=== PATIENT | female | born 1980 | race Caucasian/White ===

== ENCOUNTER 2020-06-20 16:20 | Observation (INO) | payer OTHER, SELFPAY ==
--- NOTE | ~2020-06-20 | XR_ITS ---
EXAMINATION: XR chest 1V portable DATE: 06/21/2020 07:56 INDICATION: COVID positive presenting with cough TECHNIQUE: frontal view of the chest was obtained. COMPARISON: None FINDINGS: The lungs are clear with no focal airspace opacities, pulmonary edema, pleural effusion or pneumothor ax. The cardiomediastinal silhouette is normal. Visualized bones and soft tissues are unremarkable. IMPRESSION: 1. Normal chest radiograph. Reviewed, dictated and finalized at location A. RUMENT TECHNICIAN APPRENTICE IMPRESSION: 1. Normal chest radiograph.
--- NOTE | ~2020-06-20 | US_ITS ---
EXAMINATION: US OB BPP wo non-stress DATE: 06/20/2020 18:07 INDICATION: Advanced maternal age, nonreactive nonstress test during third trimester TECHNIQUE: Real-time pelvic ultrasound was performed. The interpreting radiologist was not present fo r the study. COMPARISON: None. FINDINGS: There is a single living fetus in breech presentation. The placenta is fundal/anterior. heart r ate is 157 beats per minute (bpm). Biophysical profile performed by the technologist: breathing (30 sec sustained breathing in 30 minutes): 2 out of 2 movement (3 gross body movements in 30 minutes): 2 out of 2 tone (one episode of djlsmit-nwuluxyhb-lifgalt limb movement): 2 out of 2 Amniotic fluid pocket (2 cm): 2 out of 2 Total score: 8 out of 8 IMPRESSION: 1. Single living fetus in breech presentation. 2. Biophysical profile 8 out of 8. Reviewed, dictated and finalized at location A. RCOACH OPERATOR
--- NOTE | 2020-06-20 16:20 | OBADM ---
This patient, Madison Elena, admitted to the OB room Labor/Delivery/Recovery 101 for observation. Patient/family oriented to hospital policies and general routines including ID bracelet, bed and alarms, visiting hours, pain management, procedures, bathroom and other care routines, personal items, smoking policy, room service/diet, and visiting hours. Patient/Family are encouraged to report perceived risks to care and to ask questions if they do not understand what they are told or what they should do.
[2020-06-20 16:52] VITALS: TEMP 35.8
--- NOTE | 2020-06-20 17:32 | PM.OBTRLD ---
OB - Triage/Final Diagnosis Visit Information Date of evaluation: 06/20/20 Reason for evaluation: threatened labor
[2020-06-20] MEDS: DEXTROSE 5%/LACTATED RINGERS 1,000 ML 999 ML IV CONT (18:10)
[2020-06-20 18:23] LABS: Add Urine Microscopic? YES; Appearance Urine Clear (Clear); Bacteria Urine Trace /hpf; Bilirubin Urine Negative (Negative); Blood Urine Negative (Negative); Color Urine Yellow (Yellow); Glucose Urine UA 1+ mg/dL (Negative); Ketones Urine Negative (Negative); Leukocyte Esterase Ur Trace LEU/UL (NEGATIVE); Mucus Urine Rare /lpf; Nitrate Urine Negative (Negative); Protein Urine 1+ mg/dL (Negative); RBC Urine 0-2 /hpf (0-2); Renal Epithelial Cells Urine Rare /hpf (None Seen); Specific Grav Ur 1.012 (1.001-1.035); Squamous Epithelial Cell Urine Moderate /hpf (Few); Urobilinogen Urine Negative mg/dL (<2.0); WBC Urine 0-3 /hpf (0-3)
[2020-06-20 18:26] VITALS: BMI 39.6
[2020-06-20 18:35] VITALS: TEMP 36.1
[2020-06-20 18:37] VITALS: PULSE 90; O2SAT 97
[2020-06-20 18:38] VITALS: BP 128/70; PULSE 100
[2020-06-20] MEDS: ONDANSETRON INJ 4 MG/2 ML VIAL IV PUSH (18:55)
[2020-06-20] MEDS: FAMOTIDINE 20 MG/2 ML VIAL IV PUSH (18:55)
[2020-06-20 22:24] VITALS: BP 131/67; PULSE 89
[2020-06-20] MEDS: INSULIN HUMAN NPH (*BKC) 100 UNITS/ML 10 UNITS SUB-Q (23:32)
[2020-06-20] MEDS: INSULIN HUMAN REGULAR (*BKC) 100 UNITS/ML 10 UNITS SUB-Q (23:32)
[2020-06-20 23:38] VITALS: BP 108/59; PULSE 101; PULSE 94; O2SAT 95
[2020-06-20 23:46] LABS: Glucose Point of Care 186 (65-105)
[2020-06-21] VITALS (233 sets, daily range): BP systolic 98–125; BP diastolic 46–65; PULSE 29–148; TEMP 36.2; O2SAT 91–100
[2020-06-21] MEDS: INSULIN HUMAN REGULAR (*BKC) 100 UNITS/ML 10 UNITS SUB-Q ×4 (02:28→20:41)
[2020-06-21 03:21] LABS: Glucose Point of Care 241 (65-105)
[2020-06-21 03:21] LABS: Glucose Point of Care 210 (65-105)
[2020-06-21 04:14] LABS: Glucose Point of Care 226 (65-105)
[2020-06-21 05:38] LABS: Glucose Point of Care 223 (65-105)
[2020-06-21] MEDS: INSULIN HUMAN NPH (*BKC) 100 UNITS/ML 10 UNITS SUB-Q ×2 (06:01→20:42)
--- NOTE | 2020-06-21 06:32 | PM.IMHP ---
H&P: HPI History of Present Illness Date/Time: 06/21/20 06:32 Chief Complaint: rom Narrative: Madison Elena is a 39 year old female whose last menstrual period was 10/19/2019, EDC is 08/01/2020, confirmed by 8 week ultrasound, presents at 34+ weeks with positive COVID and questionable rupture of membranes. She is a diabetic and has been on glyburide and insulin but has not been following her diet well. Her ROM Plus was negative but she is showing signs COVID with cough and mild desaturation. Her initial heart tones were flat but her biophysical profile was 8/8. Review of Systems Review of Systems: All systems reviewed & are unremarkable except as noted in HPI and below Meds Home Medications and Allergies Allergies Allergy/AdvReac Type Severity Reaction Status Date / Time azithromycin Allergy Intermediate TURNS RED, Verified 07/24/18 10:46 FEVER, GI PAIN egg Allergy Intermediate VOMITTING, Verified 07/24/18 10:46 DIARHHEA Ywxyifx-Ext-Pkt Reductase Allergy Intermediate STIFF Verified 07/24/18 10:46 Inhibitor MUSCLES Vital Signs Vital Signs - 24 hr 06/20/20 16:52 06/20/20 18:37 06/20/20 18:38 Temperature 96.4 F L Pulse Rate 100 Blood Pressure 128/70 Pulse Oximetry 97 06/20/20 22:24 06/20/20 23:38 06/21/20 00:46 Temperature Pulse Rate 89 94 88 Blood Pressure 131/67 108/59 L 115/51 L Pulse Oximetry 95 95 06/21/20 00:51 06/21/20 00:56 06/21/20 01:01 Temperature Pulse Rate Blood Pressure Pulse Oximetry 94 94 96 06/21/20 01:03 06/21/20 01:08 06/21/20 01:13 Temperature Pulse Rate Blood Pressure Pulse Oximetry 100 100 100 06/21/20 01:18 06/21/20 01:23 06/21/20 01:28 Temperature Pulse Rate Blood Pressure Pulse Oximetry 100 100 100 06/21/20 01:33 06/21/20 01:38 06/21/20 01:43 Temperature Pulse Rate Blood Pressure Pulse Oximetry 100 100 100 06/21/20 01:44 06/21/20 01:49 06/21/20 01:54 Temperature Pulse Rate Blood Pressure Pulse Oximetry 100 100 100 06/21/20 01:59 06/21/20 02:04 06/21/20 02:09 Temperature Pulse Rate Blood Pressure Pulse Oximetry 100 100 100 06/21/20 02:14 06/21/20 02:19 06/21/20 02:31 Temperature Pulse Rate Blood Pressure Pulse Oximetry 100 100 97 06/21/20 02:32 06/21/20 02:37 06/21/20 02:42 Temperature Pulse Rate 96 Blood Pressure 101/57 L Pulse Oximetry 96 100 100 06/21/20 02:47 06/21/20 02:52 06/21/20 02:57 Temperature Pulse Rate Blood Pressure Pulse Oximetry 100 100 100 06/21/20 03:02 06/21/20 03:07 06/21/20 03:12 Temperature Pulse Rate Blood Pressure Pulse Oximetry 100 100 100 06/21/20 03:17 06/21/20 03:19 06/21/20 03:24 Temperature Pulse Rate Blood Pressure Pulse Oximetry 100 100 100 06/21/20 03:29 06/21/20 03:34 06/21/20 03:39 Temperature Pulse Rate Blood Pressure Pulse Oximetry 100 100 100 06/21/20 03:44 06/21/20 03:49 06/21/20 03:51 Temperature Pulse Rate Blood Pressure Pulse Oximetry 100 100 100 06/21/20 03:56 06/21/20 04:05 06/21/20 04:06 Temperature Pulse Rate 84 Blood Pressure 112/65 Pulse Oximetry 100 97 06/21/20 04:10 06/21/20 04:15 06/21/20 04:20 Temperature Pulse Rate Blood Pressure Pulse Oximetry 100 100 100 06/21/20 04:25 06/21/20 04:30 06/21/20 04:35 Temperature Pulse Rate Blood Pressure Pulse Oximetry 100 100 100 06/21/20 04:40 06/21/20 04:45 06/21/20 04:46 Temperature Pulse Rate Blood Pressure Pulse Oximetry 100 100 100 06/21/20 04:51 06/21/20 04:56 06/21/20 05:01 Temperature Pulse Rate Blood Pressure Pulse Oximetry 100 100 100 06/21/20 05:07 06/21/20 05:12 06/21/20 05:16 Temperature Pulse Rate 76 Blood Pressure 104/55 L Pulse Oximetry 100 100 100 06/21/20 05:21 06/21/20 05:26 06/21/20 05:31 Temperature Pulse Rate B
[2020-06-21 06:57] LABS: Glucose Point of Care 191 (65-105)
[2020-06-21] MEDS: glyBURIDE 5 MG TABLET PO ×2 (08:56→20:39)
[2020-06-21 09:05] LABS: Glucose Point of Care 160 (65-105)
[2020-06-21 10:08] LABS: Glucose Point of Care 158 (65-105)
[2020-06-21] MEDS: INSULIN HUMAN REGULAR (*BKC) 100 UNITS/ML SUB-Q (10:15)
--- NOTE | 2020-06-21 13:12 | PM.CNPUL ---
Assessment and Plan Additional Plan COVID disease-apparent pneumonia. Thirty-four week . Type 2 diabetic. Following oxygenation and radiologic status especially. History of Present Illness History of Present Illness Consult date: 06/21/20 Chief complaint: Leaking fluid Narrative: 39-year-old lady, 34 weeks who thought her water broke yesterday and she was admitted. Known COVID positivity past week or so. Also known type 2 diabetes. She was hospitalized yesterday,stable but there were signs of distress overnight such that O2 was placed and I was consulted. Note that she is a smoker, recently only about 1/4 PPD. (She is urged to quit smoking!) Meds Home Medications and Allergies Allergies Allergy/AdvReac Type Severity Reaction Status Date / Time azithromycin Allergy Intermediate TURNS RED, Verified 07/24/18 10:46 FEVER, GI PAIN egg Allergy Intermediate VOMITTING, Verified 07/24/18 10:46 DIARHHEA Otbwune-Kof-Jdv Reductase Allergy Intermediate STIFF Verified 07/24/18 10:46 Inhibitor MUSCLES Vital Signs Vital Signs - 24 hr 06/20/20 16:52 06/20/20 18:35 06/20/20 18:37 Temperature 35.8 C L 36.1 C L Pulse Rate Blood Pressure Pulse Oximetry 97 06/20/20 18:38 06/20/20 22:24 06/20/20 23:38 Temperature Pulse Rate 100 89 94 Blood Pressure 128/70 131/67 108/59 L Pulse Oximetry 95 06/21/20 00:46 06/21/20 00:51 06/21/20 00:56 Temperature Pulse Rate 88 Blood Pressure 115/51 L Pulse Oximetry 95 94 94 06/21/20 01:01 06/21/20 01:03 06/21/20 01:08 Temperature Pulse Rate Blood Pressure Pulse Oximetry 96 100 100 06/21/20 01:13 06/21/20 01:18 06/21/20 01:23 Temperature Pulse Rate Blood Pressure Pulse Oximetry 100 100 100 06/21/20 01:28 06/21/20 01:33 06/21/20 01:38 Temperature Pulse Rate Blood Pressure Pulse Oximetry 100 100 100 06/21/20 01:43 06/21/20 01:44 06/21/20 01:49 Temperature Pulse Rate Blood Pressure Pulse Oximetry 100 100 100 06/21/20 01:54 06/21/20 01:59 06/21/20 02:04 Temperature Pulse Rate Blood Pressure Pulse Oximetry 100 100 100 06/21/20 02:09 06/21/20 02:14 06/21/20 02:19 Temperature Pulse Rate Blood Pressure Pulse Oximetry 100 100 100 06/21/20 02:31 06/21/20 02:32 06/21/20 02:37 Temperature Pulse Rate 96 Blood Pressure 101/57 L Pulse Oximetry 97 96 100 06/21/20 02:42 06/21/20 02:47 06/21/20 02:52 Temperature Pulse Rate Blood Pressure Pulse Oximetry 100 100 100 06/21/20 02:57 06/21/20 03:02 06/21/20 03:07 Temperature Pulse Rate Blood Pressure Pulse Oximetry 100 100 100 06/21/20 03:12 06/21/20 03:17 06/21/20 03:19 Temperature Pulse Rate Blood Pressure Pulse Oximetry 100 100 100 06/21/20 03:24 06/21/20 03:29 06/21/20 03:34 Temperature Pulse Rate Blood Pressure Pulse Oximetry 100 100 100 06/21/20 03:39 06/21/20 03:44 06/21/20 03:49 Temperature Pulse Rate Blood Pressure Pulse Oximetry 100 100 100 06/21/20 03:51 06/21/20 03:56 06/21/20 04:05 Temperature Pulse Rate Blood Pressure Pulse Oximetry 100 100 97 06/21/20 04:06 06/21/20 04:10 06/21/20 04:15 Temperature Pulse Rate 84 Blood Pressure 112/65 Pulse Oximetry 100 100 06/21/20 04:20 06/21/20 04:25 06/21/20 04:30 Temperature Pulse Rate Blood Pressure Pulse Oximetry 100 100 100 06/21/20 04:35 06/21/20 04:40 06/21/20 04:45 Temperature Pulse Rate Blood Pressure Pulse Oximetry 100 100 100 06/21/20 04:46 06/21/20 04:51 06/21/20 04:56 Temperature Pulse Rate Blood Pressure Pulse Oximetry 100 100 100 06/21/20 05:01 06/21/20 05:07 06/21/20 05:12 Temperature Pulse Rate 76 Blood Pressure 104/55 L Pulse Oximetry 100 100 100 06/21/20 05:16 06/21/20 05:21 06/21/20 05:26 Temperature Pulse Rate Blood Pr
[2020-06-21] MEDS: NIFEdipine 10 MG CAPSULE 20 MG PO (13:24)
[2020-06-21] MEDS: FAMOTIDINE 20 MG TABLET PO (13:24)
[2020-06-21] MEDS: ONDANSETRON INJ 4 MG/2 ML VIAL IV PUSH (13:30)
[2020-06-21 15:32] LABS: Glucose Point of Care 219 (65-105)
[2020-06-21] MEDS: BETAMETHASONE SOD PHOS/ACETATE 30 MG/5 ML VIAL 12 MG IM (16:17)
--- NOTE | 2020-06-21 16:26 | PM.OBPNVD ---
OB - PN: Subj Subjective Date/time seen: 06/21/20 16:26 chasing sugars started b methasone adjust sugars OB - PN: Obj Data Labs Labs: Laboratory Results - last 24 hr 06/20/20 06/20/20 06/21/20 18:09 22:22 00:41 POC Capillary Glucose 186 H 210 H Urine Color Yellow Urine Appearance Clear Urine pH 6.0 Ur Specific [place] 1.012 Urine Protein 1+ H Urine Glucose (UA) 1+ H Urine Ketones Negative Ur Blood (Man) Negative Urine Nitrate Negative Urine Bilirubin Negative Urine Urobilinogen Negative Ur Leukocyte Esterase Trace H Urine RBC 0-2 Urine WBC 0-3 Ur Squamous Epith Cells Moderate H Ur Renal Epithelial Cell Rare H Urine Bacteria Trace Urine Mucus Rare 06/21/20 06/21/20 06/21/20 01:58 04:06 05:10 POC Capillary Glucose 241 H 226 H 223 H Urine Color Urine Appearance Urine pH Ur Specific [place] Urine Protein Urine Glucose (UA) Urine Ketones Ur Blood (Man) Urine Nitrate Urine Bilirubin Urine Urobilinogen Ur Leukocyte Esterase Urine RBC Urine WBC Ur Squamous Epith Cells Ur Renal Epithelial Cell Urine Bacteria Urine Mucus 06/21/20 06/21/20 06/21/20 06:49 08:18 10:01 POC Capillary Glucose 191 H 160 H 158 H Urine Color Urine Appearance Urine pH Ur Specific [place] Urine Protein Urine Glucose (UA) Urine Ketones Ur Blood (Man) Urine Nitrate Urine Bilirubin Urine Urobilinogen Ur Leukocyte Esterase Urine RBC Urine WBC Ur Squamous Epith Cells Ur Renal Epithelial Cell Urine Bacteria Urine Mucus 06/21/20 15:28 POC Capillary Glucose 219 H Urine Color Urine Appearance Urine pH Ur Specific [place] Urine Protein Urine Glucose (UA) Urine Ketones Ur Blood (Man) Urine Nitrate Urine Bilirubin Urine Urobilinogen Ur Leukocyte Esterase Urine RBC Urine WBC Ur Squamous Epith Cells Ur Renal Epithelial Cell Urine Bacteria Urine Mucus Imaging Radiologist's impression: Impressions Obstetrics US/Biophysical Profile 06/20/20 18:18 IMPRESSION: 1. Single living fetus in breech presentation. 2. Biophysical profile 8 out of 8. Chest X-Ray 06/21/20 07:57 IMPRESSION: 1. Normal chest radiograph. OB - PN A/P Time Spent With Patient Time: Total time spent is greater than 50% in coordination of care (as documented) at patient's floor/unit and/or counseling patient:
[2020-06-21 21:31] LABS: Glucose Point of Care 203 (65-105)
[2020-06-21 21:31] LABS: Glucose Point of Care 193 (65-105)
[2020-06-22] VITALS (103 sets, daily range): BP systolic 101–111; BP diastolic 52–74; PULSE 45–106; TEMP 36.6; O2SAT 90–100; BMI 39.6
[2020-06-22 07:01] LABS: Glucose Point of Care 107 (65-105)
--- NOTE | 2020-06-22 07:26 | PM.OBPNVD ---
OB - PN: Subj Subjective Date/time seen: 06/22/20 07:26 Interval history: feeling better OB - PN: Obj Data Labs Labs: Laboratory Results - last 24 hr 06/21/20 06/21/20 06/21/20 08:18 10:01 15:28 POC Capillary Glucose 160 H 158 H 219 H 06/21/20 06/21/20 06/22/20 20:38 21:26 06:44 POC Capillary Glucose 203 H 193 H 107 Imaging Radiologist's impression: Impressions Chest X-Ray 06/21/20 07:57 IMPRESSION: 1. Normal chest radiograph. OB - PN A/P Plan Comments: doing well Time Spent With Patient Time: Total time spent is greater than 50% in coordination of care (as documented) at patient's floor/unit and/or counseling patient: Time with patient: less than 15 minutes Review of Systems Review of Systems: All systems reviewed & are unremarkable except as noted in HPI and below Exam Const: General: no acute distress Eyes: General: appearance normal, both eyes and all related structures Neck: Neck: supple and no JVD Thyroid: thyroid normal Resp: Effort & Inspection: normal respiratory effort Auscultation: clear to auscultation bilaterally Cardio: Rate: regular rate Rhythm: regular rhythm GI: Inspection: non-distended GI Palp: Yes Soft to palpation, No Tenderness to palpation present (GI) and No Guarding due to palpation present (GI) Auscultation: normal bowel sounds : General: Yes bladder normal to palpation External Female Exam: normal external appearance Speculum Exam - Vagina: normal vaginal discharge and No vaginal bleeding Speculum Exam - Cervix: nontender Bimanual exam- vagina & uterus: bladder normal to palpation and No Cervical tenderness present OB/external & speculum: No vaginal bleeding Skin: General skin exam: no rashes or lesions noted Extrem: General: normal to inspection and no edema Psych: Mental Status: mental status grossly normal Affect: normal affect
[2020-06-22] MEDS: glyBURIDE 5 MG TABLET PO (09:07)
[2020-06-22] MEDS: INSULIN HUMAN REGULAR (*BKC) 100 UNITS/ML 10 UNITS SUB-Q (09:07)
[2020-06-22] MEDS: INSULIN HUMAN NPH (*BKC) 100 UNITS/ML 10 UNITS SUB-Q (09:09)
--- NOTE | 2020-06-22 09:53 | PC.NURSE ---
0945--Dr. Castro in unit. Report given on patient. Updated on potential discharge per Dr. Nyla Sargent after second dose of steroid and acceptable blood sugars sometime after noon. Dr. Castro in agreement.
[2020-06-22 10:50] LABS: Glucose Point of Care 273 (65-105)
[2020-06-22] MEDS: INSULIN HUMAN REGULAR (*BKC) 100 UNITS/ML 7 UNITS SUB-Q (10:58)
--- NOTE | 2020-06-22 11:04 | PM.PNPUL ---
Progress Note: A&P Time Spent With Patient Time: Stable. Following. Time with patient: less than 15 minutes Subjective Date/time seen: 06/22/20 11:04 Status discussed at length with staff. She is doing well, with stable oxygenation. No signs of distress. Cough better. Exam Narrative: Exam Narrative: ( Not examined) Objective Data Vital Signs Vital Signs: Vital Signs - 24 hr 06/21/20 11:07 06/21/20 11:12 06/21/20 11:17 Temperature Pulse Rate Blood Pressure Pulse Oximetry 97 98 97 06/21/20 11:22 06/21/20 11:27 06/21/20 11:34 Temperature Pulse Rate Blood Pressure Pulse Oximetry 97 97 100 06/21/20 11:36 06/21/20 11:39 06/21/20 11:44 Temperature Pulse Rate 83 Blood Pressure 109/64 Pulse Oximetry 99 98 06/21/20 11:46 06/21/20 11:49 06/21/20 11:54 Temperature Pulse Rate 84 Blood Pressure 107/59 L Pulse Oximetry 97 97 06/21/20 11:59 06/21/20 12:01 06/21/20 12:04 Temperature Pulse Rate 83 Blood Pressure 103/54 L Pulse Oximetry 97 98 06/21/20 12:09 06/21/20 12:14 06/21/20 12:17 Temperature Pulse Rate 87 Blood Pressure 114/57 L Pulse Oximetry 98 98 06/21/20 12:19 06/21/20 12:24 06/21/20 12:28 Temperature Pulse Rate Blood Pressure Pulse Oximetry 98 98 97 06/21/20 12:33 06/21/20 12:38 06/21/20 12:43 Temperature Pulse Rate Blood Pressure Pulse Oximetry 98 97 98 06/21/20 12:48 06/21/20 12:53 06/21/20 12:58 Temperature Pulse Rate Blood Pressure Pulse Oximetry 97 97 97 06/21/20 13:01 06/21/20 13:03 06/21/20 13:08 Temperature Pulse Rate 83 Blood Pressure 105/46 L Pulse Oximetry 99 96 06/21/20 13:13 06/21/20 13:18 06/21/20 13:23 Temperature Pulse Rate Blood Pressure Pulse Oximetry 98 96 96 06/21/20 13:31 06/21/20 13:36 06/21/20 13:41 Temperature Pulse Rate Blood Pressure Pulse Oximetry 96 98 98 06/21/20 13:46 06/21/20 13:51 06/21/20 13:56 Temperature Pulse Rate Blood Pressure Pulse Oximetry 96 96 96 06/21/20 14:01 06/21/20 14:06 06/21/20 14:11 Temperature Pulse Rate Blood Pressure Pulse Oximetry 96 95 97 06/21/20 14:12 06/21/20 14:17 06/21/20 14:22 Temperature Pulse Rate Blood Pressure Pulse Oximetry 97 97 98 06/21/20 14:27 06/21/20 14:32 06/21/20 14:37 Temperature Pulse Rate Blood Pressure Pulse Oximetry 96 99 95 06/21/20 14:42 06/21/20 14:47 06/21/20 14:52 Temperature Pulse Rate Blood Pressure Pulse Oximetry 95 94 93 06/21/20 14:57 06/21/20 15:01 06/21/20 15:02 Temperature Pulse Rate 92 Blood Pressure 98/59 L Pulse Oximetry 91 93 06/21/20 15:07 06/21/20 15:12 06/21/20 15:17 Temperature Pulse Rate Blood Pressure Pulse Oximetry 92 91 91 06/21/20 15:22 06/21/20 15:27 06/21/20 15:32 Temperature Pulse Rate Blood Pressure Pulse Oximetry 91 92 92 06/21/20 15:37 06/21/20 15:42 06/21/20 15:47 Temperature Pulse Rate Blood Pressure Pulse Oximetry 91 91 93 06/21/20 15:53 06/21/20 15:58 06/21/20 16:03 Temperature Pulse Rate Blood Pressure Pulse Oximetry 98 96 97 06/21/20 16:08 06/21/20 16:13 06/21/20 16:18 Temperature Pulse Rate Blood Pressure Pulse Oximetry 96 97 98 06/21/20 16:26 06/21/20 16:31 06/21/20 16:36 Temperature Pulse Rate Blood Pressure Pulse Oximetry 99 97 96 06/21/20 16:41 06/21/20 16:43 06/21/20 16:44 Temperature Pulse Rate Blood Pressure Pulse Oximetry 96 98 98 06/21/20 16:49 06/21/20 16:54 06/21/20 16:59 Temperature Pulse Rate Blood Pressure Pulse Oximetry 97 91 97 06/21/20 17:04 06/21/20 17:09 06/21/20 17:14 Temperature Pulse Rate Blood Pressure Pulse Oximetry 98 97 97 06/21/20 17:22 06/21/20 17:27 06/21/20 17:32 Temperature Pulse Rate Blood Pressure Pulse Oxi
[2020-06-22] MEDS: FAMOTIDINE 20 MG TABLET PO (11:44)
[2020-06-22] MEDS: BETAMETHASONE SOD PHOS/ACETATE 30 MG/5 ML VIAL 12 MG IM (12:05)
--- NOTE | 2020-06-22 12:19 | PC.NURSE ---
1150--Photographer Apprentice [employer] on unit to talk with pt via phone.
[2020-06-22 13:23] LABS: Glucose Point of Care 248 (65-105)
--- NOTE | 2020-06-22 13:36 | PM.DS ---
DS: Admitting Diagnosis Admitting Diagnosis Admitting Diagnosis: Thirty-four half week complicated by 1 contractions 2 positive COVID infection 3 insulin-dependent diabetes with poor sugar control 4 breech presentation DS: Summary Hospital Course Hospital Course: the patient's hospital course began at 35 and half weeks with questionable rupture of membranes. She had been poorly controlled due to lack of compliance. She had negative ROM Plus on admission and was noted to be positive for COVID. He received betamethasone 24 hours apart x2. Her sugars were readjusted to insulin NPH 20 in the morning and 20 irregular in a.m. and 20 of NPH and 20 of regular in the p.m.. She is to do a 1hour post prandials as well as fasting. She did receive 2 doses of betamethasone is noted. She is to follow up in 1 week time for an ultrasound and present her sugars. Time Spent with Patient Time attestation: Total time spent providing and/or coordinating discharge services: Exam Const: General: no acute distress Eyes: General: appearance normal, both eyes and all related structures Neck: Neck: supple and no JVD Thyroid: thyroid normal Resp: Effort & Inspection: normal respiratory effort Auscultation: clear to auscultation bilaterally Cardio: Rate: regular rate Rhythm: regular rhythm GI: Inspection: non-distended GI Palp: Yes Soft to palpation, No Tenderness to palpation present (GI) and No Guarding due to palpation present (GI) Auscultation: normal bowel sounds : General: Yes bladder normal to palpation External Female Exam: normal external appearance Speculum Exam - Vagina: normal vaginal discharge and No vaginal bleeding Speculum Exam - Cervix: nontender Bimanual exam- vagina & uterus: bladder normal to palpation and No Cervical tenderness present OB/external & speculum: No vaginal bleeding Skin: General skin exam: no rashes or lesions noted Extrem: General: normal to inspection and no edema Psych: Mental Status: mental status grossly normal Affect: normal affect DS: Data Data Completed and Pending Labs on day of discharge: Labs from last 24 hours 06/22/20 06/22/20 06/22/20 13:19 10:38 06:44 POC Capillary Glucose 248 H 273 H 107 06/21/20 06/21/20 06/21/20 21:26 20:38 15:28 POC Capillary Glucose 193 H 203 H 219 H Discharge Plan Discharge Attending physician on discharge: Ti Man Consulting providers: Suhas Castor Discharging Clinician: Ti Man Anticipated Discharge Date/Time: 06/22/20 13:45 Patient Disposition: Home, Self-Care Activity: unlimited and as tolerated Diet: diabetic Wound Care Instructions: follow printed instructions Patient Instructions: Antibiotic Form Stand Alone Forms: General Discharge Information Follow-up/Referrals: Ti Man MD [Physician] - Discharge Medications: New glyburide 5 mg Tablet 5 mg PO BID RF: 0 acetaminophen 500 mg Tablet 1,000 mg PO Q6H PRN (Reason: Mild Pain (1-3) Or Fever) RF: 0 Novolin N NPH U-100 Insulin 100 unit/mL Suspension 20 units subcut 0800,1700 RF: 0 Date of admission: 06/20/20 16:20 Primary Care Provider: Kye Saini Admitting Provider: Ti Man Attending physician on admission: Ti Man Condition: Stable
[2020-06-22] MEDS: INSULIN HUMAN REGULAR (*BKC) 100 UNITS/ML SUB-Q (13:46)
--- NOTE | 2020-06-22 14:26 | PC.NURSE ---
1410--DC'd IV with no complications; site WNL.
== END 2020-06-22 14:56 | disposition home or self-care (01) ==
LOC: ANHLDR 18:20 → ANH3MEDSUR 06-21 06:47 → ANHLDR 06-21 10:50
PROVIDERS: Admitting Provider Obstetrics & Gynecology; PCP Internal Medicine; Visit Provider Obstetrics & Gynecology
DX: O98.53 Other viral diseases complicating the puerperium (principal); U07.1 COVID-19; O60.03 Preterm labor without delivery, third trimester; O32.1XX0 Maternal care for breech presentation, not applicable or unspecified; O24.113 Pre-existing type 2 diabetes mellitus, in pregnancy, third trimester; E11.9 Type 2 diabetes mellitus without complications; Z79.4 Long term (current) use of insulin; O99.333 Smoking (tobacco) complicating pregnancy, third trimester; F17.210 Nicotine dependence, cigarettes, uncomplicated; Z3A.35 35 weeks gestation of pregnancy; Z91.19 Patient's noncompliance with other medical treatment and regimen
CPT/HCPCS: 71045; 76819; 81001; 84112; 87086; 96372; 96374; 96375; A9270; G0378; G0379; J0702; J1815; J2405; J7121

== ENCOUNTER 2020-06-25 11:25 | Inpatient (IN) | payer OTHER, SELFPAY ==
[2020-06-25] VITALS (66 sets, daily range): BP systolic 82–135; BP diastolic 29–80; PULSE 48–120; RESP 15–18; TEMP 36.1–36.4; O2SAT 94–100; BMI 40.0
--- NOTE | 2020-06-25 11:25 | LDADM ---
This patient, Madison Elena, was admitted to Labor/Delivery/Recovery 120 on 06/25/20 at 11:25. Plans for labor, pain management and were discussed with patient. Patient/family oriented to hospital policies and general routines including ID bracelet, bed and alarms, visiting hours, pain management, procedures, bathroom and other care routines, personal items, smoking policy, room service/diet and guest tray routines, infant security routines, and visiting hours. Patient/Family are encouraged to report perceived risks to care and to ask questions if they do not understand what they are told or what they should do. See OBIX for further documentation.
--- NOTE | 2020-06-25 12:06 | WPDANESEPP ---
Anes - Eval Pre Procedure Procedure: primary c/s Date/Time: 06/25/20 12:06 Preop Diagnosis: breech presentation Pre Op Diagnosis: Leaking fluid Patient Data Age: 39 Gender: F Height: 5 ft 8 in Weight: 119.5 kg Last Vital Signs Pulse 120 H 06/25/20 12:02 BP 112/80 06/25/20 12:02 Allergies Allergy/AdvReac Type Severity Reaction Status Date / Time azithromycin Allergy Intermediate TURNS RED, Verified 06/25/20 11:47 FEVER, GI PAIN egg Allergy Intermediate VOMITTING, Verified 06/25/20 11:47 DIARHHEA Ddqtdfc-Wag-Bks Reductase Allergy Intermediate STIFF Verified 06/25/20 11:47 Inhibitor MUSCLES metformin Allergy Numbness Verified 06/25/20 11:47 Home Medications Medication Instructions Recorded Confirmed Type glyburide 5 mg PO BID tablet 06/22/20 06/25/20 Rx insulin NPH isoph U-100 human 20 units SUBCUT 0800,1700 ml 06/22/20 06/25/20 Rx [Novolin N NPH U-100 Insulin] insulin regular human 20 units SUBCUT BID 06/25/20 06/25/20 History Patient hx anesthesia problems: none Family hx anesthesia problems: none Exam Day of Procedure 06/25/20 12:06
[2020-06-25] MEDS: LACTATED RINGERS 1,000 ML 125 ML IV CONT ×3 (12:10→20:03)
[2020-06-25] MEDS: INSULIN ASPART (*BKC) 100 UNITS/ML 10 UNITS SUB-Q (12:15)
[2020-06-25 12:22] LABS: Basophils Absolute Auto 0.1 K/mm3 (0.0-0.1); Basophils Percent Auto 0.4 % (0.2-1.2); Eosinophils Absolute Auto 0.1 K/mm3 (0-0.3); Eosinophils Percent Auto 0.3 % (0-4.4); Hematocrit 51.8 % (37.0-47.0); Hemoglobin 17.5 g/dL (12.0-15.0); Immature Granulocyte Absolute 0.35 K/mm3 (0.00-0.031); Immature Granulocyte Percent A 2.2 % (0-0.5); Lymphocytes Absolute Auto 3.22 K/mm3 (0.9-3.2); Lymphocytes Percent Auto 20.6 % (18.3-44.2); Mean Corpuscular HGB Conc 33.8 g/dl (32-36); Mean Corpuscular Hemoglobin 30.3 pg (26-34); Mean Corpuscular Volume 89.8 fl (80-100); Mean Platelet Volume 11.5 fl (7.4-10.4); Monocytes Absolute Auto 1.5 K/mm3 (0.1-0.6); Monocytes Percent Auto 9.3 % (2.6-8.5); Neutrophils Absolute Auto 10.5 K/mm3 (1.3-6.7); Neutrophils Percent Auto 67.2 % (45.5-73.1); Nucleated Red Blood Cells Perc 0.3 % (0.0-0.2); Platelet Count Result 256 k/mm3 (150-375); Red Blood Count 5.77 M/mm3 (4.2-5.4); White Blood Count 15.6 K/mm3 (4.5-10.0)
[2020-06-25 12:55] LABS: Glucose Point of Care 117 (65-105)
[2020-06-25 12:55] LABS: Glucose Point of Care 163 (65-105)
[2020-06-25 13:19] LABS: HIV 1/2 Ab P24 Ag Result Negative (Negative)
--- NOTE | 2020-06-25 13:21 | PM.IMHP ---
H&P: HPI History of Present Illness Date/Time: 06/25/20 13:21 Chief Complaint: Water broke. Narrative: 39 y/o at 34 5/7 weeks here after gush of fluid. SROM confirmed on L&D. Had COVID recently, has just completed quarantine. No cough or fever, no SOB. Good movement. Had betamethasone last week. Has Type 2 DM. Review of Systems Review of Systems: All systems reviewed & are unremarkable except as noted in HPI and below PMFSH Past Medical History Medical History Type 2 diabetes mellitus Social History Social History Years smoked: 20 Smoking status: Current every day smoker Tobacco type: cigarettes Substance use: never Gender identity (if verbalized by the patient): Female Spiritual care concerns: No Meds Home Medications and Allergies Home Medications Medication Instructions Recorded Confirmed Type glyburide 5 mg PO BID tablet 06/22/20 06/25/20 Rx insulin NPH isoph U-100 human 20 units SUBCUT 0800,1700 ml 06/22/20 06/25/20 Rx [Novolin N NPH U-100 Insulin] insulin regular human 20 units SUBCUT BID 06/25/20 06/25/20 History Allergies Allergy/AdvReac Type Severity Reaction Status Date / Time azithromycin Allergy Intermediate TURNS RED, Verified 06/25/20 11:47 FEVER, GI PAIN egg Allergy Intermediate VOMITTING, Verified 06/25/20 11:47 DIARHHEA Zajfszc-Pjc-Ndj Reductase Allergy Intermediate STIFF Verified 06/25/20 11:47 Inhibitor MUSCLES metformin Allergy Numbness Verified 06/25/20 11:47 Vital Signs Vital Signs - 24 hr 06/25/20 11:46 06/25/20 12:02 06/25/20 12:17 Pulse Rate 114 H 120 H 99 Blood Pressure 134/69 112/80 135/77 Exam Const: Orientation/consciousness: patient oriented x3 Other: Well-developed, well-nourished female in no acute distress. Neck: Thyroid: thyroid normal Lymphatic: no lymphadenopathy noted (in neck, axilla or inguinal nodes) Resp: Effort & Inspection: normal respiratory effort Auscultation: clear to auscultation bilaterally Cardio: Rate: regular rate Rhythm: regular rhythm Heart sounds: S1 normal heart sound present and S2 normal heart sound present GI: Other: ABD: Soft, nontender, nondistended, gravid. NST good variability. TOCO: contractions every 2-4 min. No guarding or rebound tenderness. No hepatosplenomegaly. Imaging: bedside ultrasound shows breech presentation. : General: Yes no CVA tenderness Other: Cervix 3/50/-2. Gross ROM. Back/Spine/Pelvis: Back: no CVA tenderness Skin: General skin exam: normal color and no rashes or lesions noted Neuro: General: patient oriented x3 Extrem: Other: Extremities: nontender with no edema Psych: Mental Status: mental status grossly normal Affect: normal affect H&P: Results Labs Labs: Short CBC 06/25/20 Range/Units 12:00 WBC 15.6 H (4.5-10.0) K/mm3 Hgb 17.5 H (12.0-15.0) g/dL Hct 51.8 H (37.0-47.0) % Plt Count 256 (150-375) k/mm3 Initial accucheck: 163. Repeat accucheck after 10 units Humalog was 117. Assessment and Plan Assessment and plan (1) Type 2 diabetes mellitus: Code(s): E11.9 - Type 2 diabetes mellitus without complications Status: Chronic (2) labor: Code(s): O60.00 - labor without delivery, unspecified trimester Status: Acute (3) SROM (spontaneous rupture of membranes): Status: Acute (4) Malpresentation of fetus: Code(s): O32.9XX0 - Maternal care for malpresentation of fetus, unspecified, not applicable or unspecified Status: Acute Assessment and Plan: A: IUP at 34 5/7 weeks with SROM, contractions, breech presentation. Type 2 DM. Recent COVID-19 infection. P: Offered primary . Reviewed risks associated with prematurity. She understands risks of surgery to include risks of anesthesia, risks of pain, infection, bleeding,
--- NOTE | 2020-06-25 13:30 | WPDHPUPDATE1 ---
History and Physical Update Update Date/Time: 06/25/20 13:30 History and Physical has been reviewed, including an updated exam of the patient. There are NO changes in the patient's condition. Risks, benefits, and alternatives have been discussed and questions answered. Patient agrees to proceed with procedure.
--- NOTE | 2020-06-25 13:55 | WPDANESEFPP ---
Anes - Eval Final PreProcedure Day of Procedure 06/25/20 13:55 Patient weight: obese Heart: regular rate and rhythm Lungs: clear to auscultation and normal air movement Airway: Mallampati scale class II Neurological: alert and oriented Last oral intake: >/= 8 hours ASA classification: III Emergent: no Anesthetic plan: proceed Anesthesia type and monitoring: regional spinal Informed Consent: The patient's anesthetic plan and its attendant risks and benefits were discussed with the patient/family/POA. Questions were solicited and answers provided to the satisfaction of the patient/family/POA.
[2020-06-25 14:41] LABS: Glucose Point of Care 82 (65-105)
--- NOTE | 2020-06-25 14:49 | PM.OBPRVD ---
OB - Delivery Note Procedure Delivery date: 06/25/20 Procedure: Primary low transverse delivery events: Labor < 37 Weeks Intrapartal events: None Route of delivery: Specimen: Yes (cord blood, placenta) Quantitative Blood Loss (ml): 340 Anesthesia type: Spinal Disposition: PACU Complications: None Narrative: The patient was taken to the operating room where she was prepared and draped in the usual sterile fashion in dorsal supine position with a leftward tilt. She received cefazolin preoperatively. Spinal anesthesia was found to be adequate. A Pfannenstiel skin incision was made and carried through to the underlying layer of the fascia. The fascia was incised in the midline and the incision was extended laterally. The fascia was dissected free of the underlying rectus muscles. The rectus muscles were in the midline. The peritoneum was identified, tented up and entered sharply. The peritoneal incision was extended superiorly and inferiorly with good visualization of the bladder. The bladder blade was placed. The vesicouterine peritoneum was identified, tented up and entered sharply. The incision was extended laterally and the bladder flap was developed. The bladder blade was replaced. The uterus was then incised sharply in a transverse fashion along the lower uterine segment. The incision was extended laterally. The infant's head was delivered atraumatically to the sterile field, followed by the body. The nose and mouth were bulb suctioned. Because the infant showed no respiratory effort, we did not delay cord clamp; the cord was clamped and cut. The was handed off the field. Cord blood was collected. The placenta was removed manually and was passed off the field. The uterus was exteriorized and cleared of all clots and debris. The uterine incision was reapproximated using 0 Monocryl in a running, locked fashion. Excellent hemostasis resulted as did excellent reapproximation of the normal anatomy. The uterus was returned the abdomen. The pelvis was irrigated copiously with warmed normal saline. Rigorous hemostasis was assured. The fascial layer was reapproximated using 0 Vicryl in a running fashion. The skin was closed with a running, subcuticular stitch of 4 0 Vicryl. Dermaflex was applied externally. Sponge, lap, needle and instrument counts were correct. The patient was taken to the recovery room in stable condition. The went to the special care nursery. I was present and scrubbed the entire procedure. Baby Date of : 06/25/20 Time of : 13:52 Weeks of gestation at delivery: 34 gender: Male Weight (pounds): 9 Weight (ounces): 2 presentation: breech Placenta delivery description: Manual Removal and Normal Configuration cord vessel description: 3 Vessels score one minute: 1
--- NOTE | 2020-06-25 14:51 | PM.OBDSVD ---
DS: Admitting Diagnosis Admitting Diagnosis Admitting Diagnosis: IUP at 34 5/7 SROM / labor Type 2 DM Breech presentation Recent novel coronavirus infection Smoker DS: Discharge Diagnosis Discharge Diagnosis (1) 2019 novel coronavirus disease (COVID-19): Code(s): U07.1 - COVID-19 Status: Acute (2) Malpresentation of fetus: Code(s): O32.9XX0 - Maternal care for malpresentation of fetus, unspecified, not applicable or unspecified Status: Acute (3) SROM (spontaneous rupture of membranes): Status: Acute (4) labor: Code(s): O60.00 - labor without delivery, unspecified trimester Status: Acute (5) Type 2 diabetes mellitus: Code(s): E11.9 - Type 2 diabetes mellitus without complications Status: Chronic (6) Cigarette smoker: Code(s): F17.210 - Nicotine dependence, cigarettes, uncomplicated Status: Acute OB - DS: Summary OB Procedures : Ultrasound OB Procedures Intrapartum: OB Procedures: : None Time Spent with Patient Time attestation: Total time spent providing and/or coordinating discharge services: DS: Data Data Completed and Pending Labs on day of discharge: Labs from last 24 hours 06/25/20 06/25/20 06/25/20 14:37 12:53 12:00 WBC RBC Hgb Hct MCV MCH MCHC RDW Plt Count MPV Immature Gran % (Auto) Neut % (Auto) Lymph % (Auto) [place] % (Auto) Eos % (Auto) Baso % (Auto) Lymph # (Auto) [place] # (Auto) Eos # (Auto) Baso # (Auto) Abs Immat Gran (auto) Absolute Neuts (auto) Absolute Nucleated RBC Nucleated RBC % POC Capillary Glucose 82 117 H RPR HIV 1&2 Ab/P24 Ag 4thGn Negative Blood Type Antibody Screen 06/25/20 06/25/20 06/25/20 12:00 12:00 12:00 WBC 15.6 H RBC 5.77 H Hgb 17.5 H Hct 51.8 H MCV 89.8 MCH 30.3 MCHC 33.8 RDW 15.0 H Plt Count 256 MPV 11.5 H Immature Gran % (Auto) 2.2 H Neut % (Auto) 67.2 Lymph % (Auto) 20.6 [place] % (Auto) 9.3 H Eos % (Auto) 0.3 Baso % (Auto) 0.4 Lymph # (Auto) 3.22 H [place] # (Auto) 1.5 H Eos # (Auto) 0.1 Baso # (Auto) 0.1 Abs Immat Gran (auto) 0.35 H Absolute Neuts (auto) 10.5 H Absolute Nucleated RBC 0.0 Nucleated RBC % 0.3 H POC Capillary Glucose RPR Pending HIV 1&2 Ab/P24 Ag 4thGn Blood Type A Positive Antibody Screen Negative 06/25/20 11:47 WBC RBC Hgb Hct MCV MCH MCHC RDW Plt Count MPV Immature Gran % (Auto) Neut % (Auto) Lymph % (Auto) [place] % (Auto) Eos % (Auto) Baso % (Auto) Lymph # (Auto) [place] # (Auto) Eos # (Auto) Baso # (Auto) Abs Immat Gran (auto) Absolute Neuts (auto) Absolute Nucleated RBC Nucleated RBC % POC Capillary Glucose 163 H RPR HIV 1&2 Ab/P24 Ag 4thGn Blood Type Antibody Screen Discharge Plan Discharge Attending physician on discharge: Ti Man Discharging Clinician: Ti Man Patient Disposition: Home, Self-Care Activity: may shower, may drive after 2 weeks and pelvic rest Diet: diabetic Wound Care Instructions: incision open to air Discharge Instructions: Call or return if temperature above 100.4? F, increased abdominal pain, increased vaginal bleeding or any new problems. Stand Alone Forms: General Discharge Information Follow-up/Referrals: Ti Man MD [Physician] - 4 Weeks Discharge Medications: New hydrocodone-acetaminophen [[place]] 5-325 mg tablet 1 - 2 tablet PO Q6H PRN (Reason: pain) Qty: 30 RF: 0 ibuprofen 600 mg tablet 600 mg PO Q6H PRN (Reason: cramps) Qty: 30 RF: 0 No Action insulin regular human 20 units subcut BID RF: 0 glyburide 5 mg Tablet 5 mg PO BID RF: 0 Novolin N NPH U-100 Insulin 100 unit/mL Suspension 20 units subcut 0800,1700 RF: 0 Date of admission: 06/25/20 11:25 Primar
[2020-06-25] MEDS: OXYTOCIN 30 UNITS/NS 500 ML 30 UNITS/500 ML BAG 125 UNITS IV CONT (15:15)
--- NOTE | 2020-06-25 15:57 | PC.NURSE ---
1130- paged [phone]- returned page. Informed pt came in with ruptured fluid at 34 5/7 weeks, pt was breech last week. Orders received to perform SVE and blood sugar and he will call back for results 1201- called in for update, informed pt has minimal variability and contractions every 2-7 minutes. Informed bs was 163, order received to give 10 units humalog and repeat bs 30 minutes after dose given. states he will head in soon to perform section and will call when he's on his way for more accurate time. 1235- called stating he is on his way in.
--- NOTE | 2020-06-25 16:17 | SUR.PHASEI ---
1449- at bedside, aware of clots and QBL of 383 cc
--- NOTE | 2020-06-25 17:02 | OBPPTRN ---
Patient transferred to post room # 286 via stretcher. Support person present. Oriented to unit, room, information board, rooming in, admission packet and security measures. Patient verbalizes understanding.
[2020-06-25 18:45] LABS: Glucose Point of Care 125 (65-105)
[2020-06-25 22:32] LABS: Glucose Point of Care 72 (65-105)
[2020-06-25 23:34] LABS: Glucose Point of Care 65 (65-105)
[2020-06-26 00:13] LABS: Glucose Point of Care 84 (65-105)
[2020-06-26 04:00] VITALS: BP 136/66; PULSE 81; RESP 16; TEMP 36.2; O2SAT 96
[2020-06-26 04:12] LABS: Glucose Point of Care 65 (65-105)
[2020-06-26] MEDS: HYDROcodone/acetaminophen (*CRX) 5-325 MG TABLET 1 TAB PO ×2 (04:31→11:28)
[2020-06-26 04:47] LABS: Glucose Point of Care 76 (65-105)
[2020-06-26 06:11] LABS: Basophils Absolute Auto 0.1 K/mm3 (0.0-0.1); Basophils Percent Auto 0.3 % (0.2-1.2); Eosinophils Absolute Auto 0.1 K/mm3 (0-0.3); Eosinophils Percent Auto 0.5 % (0-4.4); Hematocrit 45.3 % (37.0-47.0); Hemoglobin 15.1 g/dL (12.0-15.0); Immature Granulocyte Absolute 0.21 K/mm3 (0.00-0.031); Immature Granulocyte Percent A 1.1 % (0-0.5); Lymphocytes Absolute Auto 3.98 K/mm3 (0.9-3.2); Lymphocytes Percent Auto 20.5 % (18.3-44.2); Mean Corpuscular HGB Conc 33.3 g/dl (32-36); Mean Corpuscular Hemoglobin 29.8 pg (26-34); Mean Corpuscular Volume 89.5 fl (80-100); Mean Platelet Volume 11.9 fl (7.4-10.4); Monocytes Percent Auto 10.1 % (2.6-8.5); Neutrophils Absolute Auto 13.1 K/mm3 (1.3-6.7); Neutrophils Percent Auto 67.5 % (45.5-73.1); Platelet Count Result 188 k/mm3 (150-375); Red Blood Count 5.06 M/mm3 (4.2-5.4); Red Cell Distribution Width 14.8 % (11.5-14.5); White Blood Count 19.4 K/mm3 (4.5-10.0)
--- NOTE | 2020-06-26 07:20 | WPDANLDPN2 ---
Anes-Prog Note L&D Date/Time: 06/26/20 07:20 Comfortable throughout: section Neuraxial method: spinal Epidural/Spinal procedure site: clean & non-tender Neuro status: Neuro function grossly intact. Cardiovascular status: normal Respiratory status: normal Airway patency: baseline Mental status: baseline Post-Op hydration status: normal Vital Signs: Last Vital Signs Temp 36.2 C L 06/26/20 04:00 Pulse 81 06/26/20 04:00 Resp 16 06/26/20 04:00 BP 136/66 06/26/20 04:00 Pulse Ox 96 06/26/20 04:00 Pain score (VAS): 0 I/O: Intake & Output 06/25/20 06/25/20 06/26/20 15:59 23:59 07:59 Intake Total 1000 1600 636 Output Total 383 1550 1750 Balance 617 50 -1114 Post-procedural complaints: none Patient feedback: Patient satisfied with anesthetic care.
--- NOTE | 2020-06-26 07:20 | WPDANLDNPN2 ---
Anes-Prog Note L&D-Neuraxial Date/Time: 06/26/20 07:20 Neuraxial medications: intrathecal PF morphine Opiod-related complaints: none Patient feedback: Patient satisfied with post-operative pain management.
[2020-06-26 07:45] VITALS: BP 105/73; PULSE 92; RESP 18; TEMP 36.5
--- NOTE | 2020-06-26 08:45 | PC.NURSE ---
Dr. Mari here assessing patient- orders given to HOLD diabetic medication due to consistent blood sugar results. Discontinue blood sugars every 4 hours and BEGIN doing blood sugars 1 hour PC starting after lunch time. Dr. Mari also discussed giving the patient a pass to go see her baby at [facility] today if she chooses.
--- NOTE | 2020-06-26 08:45 | PM.OBPNVD ---
OB - PN: Subj Subjective Date/time seen: 06/26/20 08:45 Narrative: Pain OK. Tolerating diet. Baby intubated at [facility]. OB - PN: Obj Data Labs CBC & Chem 7: 06/26/20 04:42 Labs: Laboratory Results - last 24 hr 06/25/20 06/25/20 06/25/20 11:47 12:00 12:00 WBC 15.6 H RBC 5.77 H Hgb 17.5 H Hct 51.8 H MCV 89.8 MCH 30.3 MCHC 33.8 RDW 15.0 H Plt Count 256 MPV 11.5 H Immature Gran % (Auto) 2.2 H Neut % (Auto) 67.2 Lymph % (Auto) 20.6 [place] % (Auto) 9.3 H Eos % (Auto) 0.3 Baso % (Auto) 0.4 Lymph # (Auto) 3.[address] [place] # (Auto) 1.5 H Eos # (Auto) 0.1 Baso # (Auto) 0.1 Abs Immat Gran (auto) 0.35 H Absolute Neuts (auto) 10.5 H Absolute Nucleated RBC 0.0 Nucleated RBC % 0.3 H POC Capillary Glucose 163 H HIV 1&2 Ab/P24 Ag 4thGn Blood Type A Positive Antibody Screen Negative 06/25/20 06/25/20 06/25/20 12:00 12:53 14:37 WBC RBC Hgb Hct MCV MCH MCHC RDW Plt Count MPV Immature Gran % (Auto) Neut % (Auto) Lymph % (Auto) [place] % (Auto) Eos % (Auto) Baso % (Auto) Lymph # (Auto) [place] # (Auto) Eos # (Auto) Baso # (Auto) Abs Immat Gran (auto) Absolute Neuts (auto) Absolute Nucleated RBC Nucleated RBC % POC Capillary Glucose 117 H 82 HIV 1&2 Ab/P24 Ag 4thGn Negative Blood Type Antibody Screen 06/25/20 06/25/20 06/25/20 18:44 22:29 23:33 WBC RBC Hgb Hct MCV MCH MCHC RDW Plt Count MPV Immature Gran % (Auto) Neut % (Auto) Lymph % (Auto) [place] % (Auto) Eos % (Auto) Baso % (Auto) Lymph # (Auto) [place] # (Auto) Eos # (Auto) Baso # (Auto) Abs Immat Gran (auto) Absolute Neuts (auto) Absolute Nucleated RBC Nucleated RBC % POC Capillary Glucose 125 H 72 65 HIV 1&2 Ab/P24 Ag 4thGn Blood Type Antibody Screen 06/26/20 06/26/20 06/26/20 00:11 04:09 04:42 WBC 19.4 H RBC 5.06 Hgb 15.1 H Hct 45.3 MCV 89.5 MCH 29.8 MCHC 33.3 RDW 14.8 H Plt Count 188 MPV 11.9 H Immature Gran % (Auto) 1.1 H Neut % (Auto) 67.5 Lymph % (Auto) 20.5 [place] % (Auto) 10.1 H Eos % (Auto) 0.5 Baso % (Auto) 0.3 Lymph # (Auto) 3.[address] [place] # (Auto) 2.0 H Eos # (Auto) 0.1 Baso # (Auto) 0.1 Abs Immat Gran (auto) 0.21 H Absolute Neuts (auto) 13.1 H Absolute Nucleated RBC 0.0 Nucleated RBC % 0.0 POC Capillary Glucose 84 65 HIV 1&2 Ab/P24 Ag 4thGn Blood Type Antibody Screen 06/26/20 04:42 WBC RBC Hgb Hct MCV MCH MCHC RDW Plt Count MPV Immature Gran % (Auto) Neut % (Auto) Lymph % (Auto) [place] % (Auto) Eos % (Auto) Baso % (Auto) Lymph # (Auto) [place] # (Auto) Eos # (Auto) Baso # (Auto) Abs Immat Gran (auto) Absolute Neuts (auto) Absolute Nucleated RBC Nucleated RBC % POC Capillary Glucose 76 HIV 1&2 Ab/P24 Ag 4thGn Blood Type Antibody Screen OB - PN A/P Plan Comments: A: POD#1, doing well. P: Routine care. Hold glyburide for now, continue accuchecks. Exam Narrative: Exam Narrative: AVSS I/O OK ABD soft, nontender, fundus firm. Incision c/d/i. EXT nontender
[2020-06-26 08:47] LABS: Glucose Point of Care 96 (65-105)
[2020-06-26] MEDS: MULTIVIT/MIN/PREN/FOL AC/IRON TABLET 1 TAB PO (08:48)
--- NOTE | 2020-06-26 12:11 | PC.NURSE ---
Patient is leaving with significant other at 12:11 on 06/26/2020 to visit at [facility] with permission by . Patient understands she is to be back at the hospital at 18:00 this evening. Patient instructed to check blood sugar with her personal glucometer after lunchtime and alert staff at [facility] if her result is abnormal.
--- NOTE | 2020-06-26 16:35 | PC.NURSE ---
Patient returned to floor from visiting at [facility].
[2020-06-26] MEDS: SIMETHICONE 80 MG TAB.CHEW PO (17:01)
[2020-06-26] MEDS: HYDROcodone/acetaminophen (*CRX) 10-325 MG TABLET 1 TAB PO ×2 (17:01→21:50)
[2020-06-26 17:18] LABS: Glucose Point of Care 233 (65-105)
[2020-06-26 18:19] VITALS: BP 116/65; PULSE 101; RESP 18; TEMP 36.7
[2020-06-26 19:00] VITALS: BP 107/69; PULSE 81; RESP 16; TEMP 36.9
[2020-06-26 21:48] LABS: Glucose Point of Care 197 (65-105)
[2020-06-26] MEDS: IBUPROFEN 600 MG TABLET PO (21:50)
[2020-06-27] MEDS: HYDROcodone/acetaminophen (*CRX) 10-325 MG TABLET 1 TAB PO (03:38)
[2020-06-27] MEDS: IBUPROFEN 600 MG TABLET PO (03:38)
[2020-06-27 07:01] LABS: Rapid Plasma Reagin Non-Reactive (NonReactive)
[2020-06-27 07:59] LABS: Glucose Point of Care 125 (65-105)
[2020-06-27 08:00] VITALS: BP 121/86; PULSE 76; RESP 18; TEMP 36.2; O2SAT 100
[2020-06-27] MEDS: HYDROcodone/acetaminophen (*CRX) 5-325 MG TABLET 1 TAB PO (08:29)
[2020-06-27] MEDS: glyBURIDE 5 MG TABLET PO (08:29)
[2020-06-27] MEDS: MULTIVIT/MIN/PREN/FOL AC/IRON TABLET 1 TAB PO (08:29)
[2020-06-27] MEDS: TETANUS,DIPHTHERIA,AC PERTUSSIS ADULT (0.5 ML) BOOSTRIX IM (08:31)
--- NOTE | 2020-06-27 08:59 | PM.OBPNVD ---
OB - PN: Subj Subjective Date/time seen: 06/27/20 08:59 Narrative: Pain OK. Tolerating diet. Would like to go home. OB - PN: Obj Data Labs CBC & Chem 7: 06/26/20 04:42 Labs: Laboratory Results - last 24 hr 06/25/20 06/26/20 06/26/20 12:00 17:13 21:45 POC Capillary Glucose 233 H 197 H RPR Non-reactive 06/27/20 07:56 POC Capillary Glucose 125 H RPR OB - PN A/P Plan Comments: A: POD#2, doing well. P: Home to f/u 4 weeks. Exam Narrative: Exam Narrative: AVSS ABD soft, nontender, fundus firm. Incision c/d/i. EXT nontender
[2020-06-27 09:35] LABS: Glucose Point of Care 210 (65-105)
--- NOTE | 2020-06-27 11:42 | PC.NURSE ---
Patient viewed the discharge video Mother & Baby Care, The First Two Weeks . Patient was given the opportunity and encouraged to ask questions. Patient verbalized understanding of information shared and has been given the mother/baby guide for home reference.
--- NOTE | 2020-06-27 15:15 | PC.NURSE ---
1045 visit; mother pumping; nurse encouraged mother to pump q3h; at this time she is not able to pump volume. Mother shown breast feeding pages in Mother-baby guide, including contact information. Baby currently still intubated. Mother reassured that she will have breast feeding support at [facility]. Mother attentive and voiced understanding of information shared.
[2020-06-28 14:50] VITALS: BP 102/78; PULSE 97; RESP 20; TEMP 36.6; O2SAT 98
== END 2020-06-27 11:29 | disposition home or self-care (01) | DRG 540 ==
LOC: ANHLDR 14:53 → ANHOB2 06-27 09:00 → ANHLDR 06-29 12:47 → ANHOB2 06-29 12:47
PROVIDERS: Obstetrics & Gynecology; Admitting Provider Obstetrics & Gynecology; PCP Internal Medicine; Visit Provider Obstetrics & Gynecology
PROC: 10D00Z1 Extraction of Products of Conception, Low, Open Approach (ICD-10-PCS; CPT 59514; principal; 2020-06-25 13:20)
DX: O60.14X0 Preterm labor third trimester with preterm delivery third trimester, not applicable or unspecified (principal); Z37.0 Single live birth; Z3A.34 34 weeks gestation of pregnancy; O32.1XX0 Maternal care for breech presentation, not applicable or unspecified; E66.9 Obesity, unspecified; O99.214 Obesity complicating childbirth; Z86.16 Personal history of COVID-19; O36.8330 Maternal care for abnormalities of the fetal heart rate or rhythm, third trimester, not applicable or unspecified; O24.12 Pre-existing type 2 diabetes mellitus, in childbirth; E11.9 Type 2 diabetes mellitus without complications
CPT/HCPCS: 36415; 85025; 86592; 86703; 86850; 86900; 86901; 90715; A9270; G0432; J0131; J1100; J1815; J2274; J2370; J2590; J7120

== ENCOUNTER 2021-02-25 16:30 | Emergency (ER) | payer OTHER, SELFPAY ==
[2021-02-25 16:35] VITALS: BP 139/89; PULSE 89; RESP 17; TEMP 37.2; O2SAT 95
[2021-02-25] MEDS: KETOROLAC (*BKC) 60 MG/2 ML VIAL IM (16:49)
[2021-02-25] MEDS: ORPHENADRINE CITRATE 100 MG TABLET.ER PO (16:50)
--- NOTE | 2021-02-25 17:03 | ED.BACK ---
HPI - Back Pain/Injury General Chief Complaint: Back Pain/Injury Stated Complaint: nerve pain burning Source: patient Mode of arrival: ambulatory History of Present Illness HPI Narrative: this is 40-year-old female with chronic lower back pain with a chronic sciatica, with some recent flare of her sciatic pain radiating into her left lower extremity with no saddle paresthesias no fever chills. The patient has tried akfz-gur-[id number] pain medication with minimal relief. Currently there is no flank pain no shortness of breath no fever chills no nausea vomiting no diarrhea or constipation. MD elicited complaint: back pain Pertinent past history: prior back pain Onset (ago): day(s) Timing: constant Severity: moderate Pain scale (0-10): 6 Similar Symptoms Previously: Yes Quality: tingling and spasming Location: lumbar spine Radiation: left leg below the knee Exacerbating factors: movement Relieving factors: immobilization Related Data Allergies Allergy/AdvReac Type Severity Reaction Status Date / Time azithromycin Allergy Intermediate TURNS RED, Verified 06/25/20 11:47 FEVER, GI PAIN egg Allergy Intermediate VOMITTING, Verified 06/25/20 11:47 DIARHHEA Bvtansz-Gig-Oar Reductase Allergy Intermediate STIFF Verified 06/25/20 11:47 Inhibitor MUSCLES metformin Allergy Numbness Verified 06/25/20 11:47 Review of Systems Review of Systems: All systems reviewed & are unremarkable except as noted in HPI and below PMFSH Past Medical History Medical History Type 2 diabetes mellitus Social History Social History Years smoked: 20 Smoking status: Current every day smoker Tobacco type: cigarettes Substance use: never Gender identity (if verbalized by the patient): Female Spiritual care concerns: No Exam Const: General: no acute distress and alert Orientation/consciousness: patient oriented x3 HENMT: Head: normal to inspection Eyes: Conjunctivae: conjunctivae normal Pupils: Equal, round and reactive pupils present EOM: EOMs intact bilaterally Neck: Neck: normal visual inspection, no lymphadenopathy and no meningeal signs Chest: Chest palpation & inspection: normal inspection of the chest Resp: Effort & Inspection: normal respiratory effort Auscultation: clear to auscultation bilaterally GI: Auscultation: normal bowel sounds : General: Yes no CVA tenderness Urinary Catheter: Urinary Catheter: patent and draining Back/Spine/Pelvis: Back: no CVA tenderness Skin: General skin exam: normal color Rashes: no rashes Neuro: General: patient oriented x3 and moves all extremities Other: Positive straight leg raising test on the left Extrem: General: normal to inspection and no pedal edema Psych: Mental Status: mental status grossly normal Affect: normal affect Attitude: cooperative Course Course Emergency Course: patient received IM Toradol and IM muscle relaxer, advised patient follow-up with primary care physician. Vital Signs Vital signs: Vital Signs Temperature 37.2 C 02/25/21 16:35 Pulse Rate 89 02/25/21 16:35 Respiratory Rate 17 02/25/21 16:35 Blood Pressure 139/89 02/25/21 16:35 Pulse Oximetry 95 02/25/21 16:35 Temperature 37.2 C 02/25/21 16:35 Pulse Rate 89 02/25/21 16:35 Respiratory Rate 17 02/25/21 16:35 Blood Pressure 139/89 02/25/21 16:35 Pulse Oximetry 95 02/25/21 16:35 Critical Care Time Critical Care Time Critical Care Time: No Discharge Plan Discharge Clinical Impression: Sciatica Qualifiers: Laterality: left Qualified Code(s): M54.32 - Sciatica, left side Patient Disposition: Home, Self-Care Condition: Stable Instructions: Antibiotic Form, Sciatica (ED) Additional Instructions: Follow up with primary care physician if symptoms persist or worsen. Prescriptions: New tramadol [Ultram] 5
[2021-02-25 17:15] VITALS: RESP 19
== END 2021-02-25 17:15 | disposition home or self-care (01) ==
PROVIDERS: Emergency Provider Emergency Medicine; PCP Internal Medicine
DX: M54.32 Sciatica, left side (principal)
CPT/HCPCS: 96372; 99283; A9270; J1885

== ENCOUNTER 2021-06-25 13:09 | Emergency (ER) | payer OTHER, SELFPAY ==
[2021-06-25 13:30] VITALS: BP 133/70; PULSE 78; RESP 18; TEMP 36.6; O2SAT 95
--- NOTE | 2021-06-25 13:55 | ED.DIZZY ---
HPI - Dizziness General Chief Complaint: Dizziness Stated Complaint: dizziness, throwing up Source: patient and RN notes reviewed Mode of arrival: ambulatory Limitations: no limitations History of Present Illness MD elicited complaint: dizziness Onset (ago): hour(s) (6.5) Timing: sudden onset Severity: moderate Description: room spinning and off-balance Context: change in body position History of similar symptoms: No Exacerbating factors: change in body position Relieving factors: remaining still Associated symptoms: nausea and vomiting Related Data Allergies Allergy/AdvReac Type Severity Reaction Status Date / Time azithromycin Allergy Intermediate TURNS RED, Verified 06/25/20 11:47 FEVER, GI PAIN egg Allergy Intermediate VOMITTING, Verified 06/25/20 11:47 DIARHHEA Kqindzr-LLT-HbZ Reductase Allergy Intermediate STIFF Verified 06/25/20 11:47 Inhibitor MUSCLES [Hzaghbu-Wih-Puu Reductase Inhibitor] metformin Allergy Numbness Verified 06/25/20 11:47 Review of Systems Review of Systems: All systems reviewed & are unremarkable except as noted in HPI and below Constitutional: Constitutional: Denies chills and Denies fever(s) PMFSH Past Medical History Medical History (Updated 06/25/21 @ 15:54 by Trev Zaidi MD) Type 2 diabetes mellitus Surgical History Surgical History (Updated 06/25/21 @ 13:56 by Trev Zaidi MD) History of section History of tonsillectomy Social History Social History Years smoked: 20 Smoking status: Current every day smoker Tobacco type: cigarettes Substance use: never Gender identity (if verbalized by the patient): Female Spiritual care concerns: No Exam Const: General: healthy appearing, no acute distress and alert Nutritional Appearance: well nourished and obese Orientation/consciousness: patient oriented x3 HENMT: Head: normal to inspection Ears: external ear abnormal Eyes: Conjunctivae: conjunctivae normal Pupils: Equal, round and reactive pupils present EOM: EOMs intact bilaterally and Nystagmus present Neck: Neck: normal visual inspection Chest: Chest palpation & inspection: normal inspection of the chest Resp: Effort & Inspection: normal respiratory effort Auscultation: clear to auscultation bilaterally Cardio: Rate: regular rate Rhythm: regular rhythm GI: GI Palp: Yes Soft to palpation and No Tenderness to palpation present (GI) Auscultation: normal bowel sounds Back/Spine/Pelvis: Cervical Spine: cervical ROM normal Thoracic/Lumbar Spine: thoraco-lumbar ROM normal Neuro: General: patient oriented x3, moves all extremities, no meningeal signs and no focal motor deficits Cranial nerves: Yes Nystagmus present horizontal fast component to the right Speech: normal speech Gait exam (Neuro): Normal gait present Extrem: General: normal to inspection and no clubbing, cyanosis or edema Psych: Appearance: grossly normal and well kempt Mental Status: mental status grossly normal Affect: normal affect Attitude: cooperative Thought content: Yes Normal thought content present Course Course Emergency Course: patient had meclizine 25 mg which significantly improved her dizziness. 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 Following this I performed Chi maneuver for the right side to improve her benign positional vertigo. Vital Signs Vital signs: Vital Signs Temperature 36.6 C 06/25/21 13:30 Pulse Rate 78 06/25/21 13:30 Respiratory Rate 18 06/25/21 13:30 Blood Pressure 133/70 06/25/21 13:30 Pulse Oximetry 95 06/25/21 13:30 Temperature 36.3 C L 06/25/21 15:55 Pulse Rate 68 06/25/21 15:55 Respiratory Rate 20 06/25/21 15:55 Blood Pressure 110/64 06/25/21 15:55 Pulse Oximetry 98 06/25/21 15:55 Discharge Plan Discharge Clinical Impression: Benign paroxysmal positional vertig
[2021-06-25] MEDS: MECLIZINE HCL 25 MG TABLET PO (14:10)
--- NOTE | 2021-06-25 14:17 | PC.NURSE ---
1410 pt able to swallow pill and take small sips of water . no vomiting at this time. pt sitting on side of cot. declined to lay down
[2021-06-25 15:55] VITALS: BP 110/64; PULSE 68; RESP 20; TEMP 36.3; O2SAT 98
== END 2021-06-25 16:03 | disposition home or self-care (01) ==
PROVIDERS: Emergency Provider Emergency Medicine; PCP Internal Medicine
DX: H81.10 Benign paroxysmal vertigo, unspecified ear (principal)
CPT/HCPCS: 99283; A9270

== ENCOUNTER 2022-04-29 11:08 | Emergency (ER) | payer OTHER, SELFPAY ==
[2022-04-29 11:08] VITALS: BP 129/72; PULSE 90; RESP 18; TEMP 36.4; O2SAT 97
[2022-04-29 11:12] VITALS: BP 129/72; PULSE 90; RESP 18; TEMP 36.4; O2SAT 97
--- NOTE | 2022-04-29 11:33 | ED.URI ---
HPI - URI/Sore Throat General Chief Complaint: Upper Respiratory Infection Stated Complaint: earache both/fatigue/dizzy/cough Source: patient and RN notes reviewed Mode of arrival: ambulatory Limitations: no limitations History of Present Illness MD elicited complaint: fever, sore throat and nasal congestion Onset (ago): day(s) (2) Consistency: constant Severity: moderate Description of mucous: clear Able to tolerate fluids by mouth: Yes Exacerbating factors: speaking Relieving factors: nothing Context: sick contacts (RSV at daycare) Associated symptoms: fever, chills, myalgias, headache and nausea Treatments prior to arrival: none Related Data Home Medications Medication Instructions Recorded Confirmed No Home Medications 04/29/22 04/29/22 Allergies Allergy/AdvReac Type Severity Reaction Status Date / Time azithromycin Allergy Intermediate TURNS RED, Verified 06/25/20 11:47 FEVER, GI PAIN egg Allergy Intermediate VOMITTING, Verified 06/25/20 11:47 DIARHHEA Gmmyhsz-XDB-KyS Reductase Allergy Intermediate STIFF Verified 06/25/20 11:47 Inhibitor MUSCLES [Nwfeult-Nsl-Ehl Reductase Inhibitor] metformin Allergy Numbness Verified 06/25/20 11:47 Review of Systems Review of Systems: All systems reviewed & are unremarkable except as noted in HPI and below PMFSH Past Medical History Medical History Type 2 diabetes mellitus Surgical History Surgical History (Updated 06/25/21 @ 13:56 by Trev Zaidi MD) History of section History of tonsillectomy Social History Social History Years smoked: 20 Smoking status: Current every day smoker Tobacco type: cigarettes Substance use: never Gender identity (if verbalized by the patient): Female Spiritual care concerns: No Exam Const: General: healthy appearing, no acute distress and alert Nutritional Appearance: well nourished and obese Orientation/consciousness: patient oriented x3 Limitations: no limitations Other: female nurse in room during examination. HENMT: Head: normal to inspection Ears: external ears normal and TM's normal bilaterally Face/Nose/Sinus: Normal external nose present Face and sinus: normal facial exam Mouth: Yes moist mucous membranes Throat: posterior oropharynx normal and uvula midline Eyes: Conjunctivae: conjunctivae normal Pupils: Equal, round and reactive pupils present EOM: EOMs intact bilaterally Neck: Neck: normal visual inspection and no lymphadenopathy noted Resp: Effort & Inspection: normal respiratory effort Auscultation: clear to auscultation bilaterally Cardio: Rate: regular rate Rhythm: regular rhythm GI: GI Palp: Yes Soft to palpation and No Tenderness to palpation present (GI) Auscultation: normal bowel sounds Back/Spine/Pelvis: Cervical Spine: cervical ROM normal Thoracic/Lumbar Spine: thoraco-lumbar ROM normal Skin: General skin exam: normal color Rashes: no rashes Neuro: General: patient oriented x3, moves all extremities, no focal motor deficits and CN's II-XI intact bilaterally Speech: normal speech Gait exam (Neuro): Normal gait present Extrem: General: normal to inspection and no clubbing, cyanosis or edema Psych: Mental Status: mental status grossly normal Affect: normal affect Attitude: cooperative Course Vital Signs Vital signs: Vital Signs Temperature 36.4 C 04/29/22 11:08 Pulse Rate 90 04/29/22 11:08 Respiratory Rate 18 04/29/22 11:08 Blood Pressure 129/72 04/29/22 11:08 Pulse Oximetry 97 04/29/22 11:08 Oxygen Delivery Room Air 04/29/22 11:08 Temperature 36.2 C L 04/29/22 12:50 Pulse Rate 88 04/29/22 12:50 Respiratory Rate 16 04/29/22 12:50 Blood Pressure 114/74 04/29/22 12:50 Pulse Oximetry 97 04/29/22 12:50 Oxygen Delivery Room Air 04/29/22 12:50 MDM - URI/Sore Throat Lab Da
[2022-04-29 12:16] LABS: Influenza A QL RT-PCR Negative (Negative); Influenza B QL RT-PCR Negative (Negative); SARS-CoV-2 RNA PCR Negative (Negative)
[2022-04-29 12:18] LABS: RSV RNA, RT-PCR Negative (Negative)
[2022-04-29 12:50] VITALS: BP 114/74; PULSE 88; RESP 16; TEMP 36.2; O2SAT 97
== END 2022-04-29 12:57 | disposition home or self-care (01) ==
PROVIDERS: Emergency Provider Emergency Medicine; PCP Internal Medicine
DX: J00 Acute nasopharyngitis [common cold] (principal); Z20.822 Contact with and (suspected) exposure to COVID-19
CPT/HCPCS: 87502; 87634; 99283; U0003; U0005

== ENCOUNTER 2023-09-19 10:52 | Outpatient (RCR) | payer OTHER, SELFPAY | END 2023-12-10 14:09 | disposition home or self-care (01) | LOC: ANHDMC 10:52 | PROVIDERS: PCP Internal Medicine; Visit Provider Internal Medicine | DX: E11.65 Type 2 diabetes mellitus with hyperglycemia (principal); Z71.89 Other specified counseling | CPT/HCPCS: G0108 ==

== ENCOUNTER 2023-10-09 13:06 | Emergency (ER) | payer OTHER, SELFPAY ==
[2023-10-09 13:09] VITALS: BP 133/79; PULSE 86; RESP 18; TEMP 36.3; O2SAT 96
--- NOTE | 2023-10-09 13:17 | ED.DENTAL ---
HPI - Dental/Oral General Chief complaint: Dental/Oral Stated complaint: Tooth pain Time Seen by Provider: 10/09/23 13:17 Source: patient Mode of arrival: ambulatory Limitations: no limitations History of Present Illness HPI Narrative: 43-year-old female, smoker with a history of vertigo, DM presents to the ER with left upper dental pain for the past 3 days. No fever or chills. History of extensive dental caries. blood sugar 181 MD Complaint: tooth pain Location: Tooth # (14) Onset (ago): day(s) ( Three days) Duration: constant Severity: severe Relieving factors: nothing Exacerbating factors: nothing Context: history of dental caries Treatment prior to arrival: none Related Data Home Medications Medication Instructions Recorded Confirmed glimepiride 2 mg tablet 2 mg PO BID 10/09/23 10/09/23 rosuvastatin 5 mg tablet 5 mg PO DAILY 10/09/23 10/09/23 semaglutide 7 mg tablet (Rybelsus) 7 mg PO DAILY 10/09/23 10/09/23 Allergies Allergy/AdvReac Type Severity Reaction Status Date / Time azithromycin Allergy Intermediate TURNS RED, Verified 10/09/23 13:25 FEVER, GI PAIN egg Allergy Intermediate VOMITTING, Verified 10/09/23 13:25 DIARHHEA Ivnjadh-KBR-ZqC Reductase Allergy Intermediate STIFF Verified 10/09/23 13:25 Inhibitor MUSCLES [Qyvcgxm-Caa-Ysw Reductase Inhibitor] metformin Allergy Numbness Verified 10/09/23 13:25 Review of Systems Review of Systems: All systems reviewed & are unremarkable except as noted in HPI and below Constitutional: Constitutional: Reports as per HPI and Reports no additional constitutional complaints Eyes: Eyes: Reports as per HPI and Reports no additional eye complaints ENT: Reports system reviewed and no additional complaints, except as documented and Reports as per HPI Comments: left upper 1st molar pain Cardiovascular: Cardiovascular: Reports as per HPI and Reports no additional cardiovascular complaints Respiratory: Respiratory: Reports as per HPI and Reports no additional respiratory complaints Gastrointestinal: Gastrointestinal: Reports as per HPI and Reports no additional gastrointestinal complaints Genitourinary: Genitourinary: Reports no additional female genitourinary complaints and Reports as per HPI Musculoskeletal: Musculoskeletal: Reports no additional musculoskeletal complaints and Reports as per HPI Integumentary/Breasts: Skin/Breast: Reports system reviewed and no additional complaints, except as docu Neurologic: Reports system reviewed and no additional complaints, except as documented and Reports as per HPI Psychiatric: Psychiatric: Reports no additional psychiatric complaints and Reports as per HPI Endocrine: Endocrine: Reports no additional endocrine complaints and Reports as per HPI Hematologic/Lymphatic: Hematologic/Lymphatic: Reports no additional hematologic/lymphatic complaints and Reports as per HPI Allergic/Immunologic: Allergic/Immunologic: Reports no additional allergic/immunologic complaints and Reports as per HPI PMFSH Past Medical History Medical History Type 2 diabetes mellitus Surgical History Surgical History History of section History of tonsillectomy Social History Social History Years smoked: 20 Smoking status: Current every day smoker Tobacco type: cigarettes Substance use: never Gender identity (if verbalized by the patient): Female Spiritual care concerns: No Exam Const: General: healthy appearing and no acute distress Nutritional Appearance: well nourished Orientation/consciousness: patient oriented x3 Limitations: no limitations HENMT: Head: normal to inspection Ears: external ears normal Face/Nose/Sinus: Normal external nose present Face and sinus: normal facial exam Mouth: Yes Maki
[2023-10-09 13:42] LABS: Glucose Point of Care 181 mg/dl (65-105)
== END 2023-10-09 13:50 | disposition home or self-care (01) ==
LOC: CHSED 13:41
PROVIDERS: Emergency Provider Internal Medicine Critical Care Medicine; PCP Internal Medicine
DX: K02.9 Dental caries, unspecified (principal); E11.9 Type 2 diabetes mellitus without complications; F17.210 Nicotine dependence, cigarettes, uncomplicated; Z79.84 Long term (current) use of oral hypoglycemic drugs
CPT/HCPCS: 82948; 99283

== ENCOUNTER 2023-10-11 00:17 | Emergency (ER) | payer OTHER, SELFPAY ==
[2023-10-11 00:20] VITALS: BP 150/75; PULSE 86; RESP 18; TEMP 36.6; O2SAT 98
--- NOTE | 2023-10-11 00:25 | ED.DENTAL ---
HPI - Dental/Oral General Chief complaint: Dental/Oral Stated complaint: tooth pain Source: patient Mode of arrival: ambulatory Limitations: no limitations History of Present Illness HPI Narrative: this is a 43-year-old female with dental pain was seen yesterday in our emergency department started on antibiotics but returns to the ER because pain is persistent. There is some swelling and left submandibular gland tenderness with no shortness of breath no fever chills. MD Complaint: tooth pain Teeth map: 1. dental pain with surrounding gum inflammation and swelling Onset (ago): week(s) Related Data Home Medications Medication Instructions Recorded Confirmed glimepiride 2 mg tablet 2 mg PO BID 10/09/23 10/11/23 rosuvastatin 5 mg tablet 5 mg PO DAILY 10/09/23 10/11/23 semaglutide 7 mg tablet (Rybelsus) 7 mg PO DAILY 10/09/23 10/11/23 Allergies Allergy/AdvReac Type Severity Reaction Status Date / Time azithromycin Allergy Intermediate TURNS RED, Verified 10/11/23 00:21 FEVER, GI PAIN egg Allergy Intermediate VOMITTING, Verified 10/11/23 00:21 DIARHHEA Mqtyuoc-EAZ-MpS Reductase Allergy Intermediate STIFF Verified 10/11/23 00:21 Inhibitor MUSCLES [Dabrkol-Qpp-Rxk Reductase Inhibitor] metformin Allergy Numbness Verified 10/11/23 00:21 Review of Systems Review of Systems: All systems reviewed & are unremarkable except as noted in HPI and below PMFSH Past Medical History Medical History Type 2 diabetes mellitus Surgical History Surgical History History of section History of tonsillectomy Social History Social History Years smoked: 20 Smoking status: Current every day smoker Tobacco type: cigarettes Substance use: never Gender identity (if verbalized by the patient): Female Spiritual care concerns: No Exam Const: General: healthy appearing Nutritional Appearance: well nourished Orientation/consciousness: patient oriented x3 Limitations: no limitations HENMT: Other: Left lower molar tenderness and surrounding gum inflammation Neck: Neck: normal visual inspection Chest: Chest palpation & inspection: normal inspection of the chest Cardio: Rate: regular rate Rhythm: regular rhythm Skin: General skin exam: normal color Rashes: no rashes Neuro: General: patient oriented x3 Extrem: General: normal to inspection Psych: Mental Status: mental status grossly normal Course Course Emergency Course: patient with dental pain started the antibiotic yesterday advised continue her antibiotic daily and will prescribe pain medication and administer an injection of Toradol 60mg IM. Vital Signs Vital signs: Vital Signs Temperature 36.6 C 10/11/23 00:20 Pulse Rate 86 10/11/23 00:20 Respiratory Rate 18 10/11/23 00:20 Blood Pressure 150/75 H 10/11/23 00:20 Pulse Oximetry 98 10/11/23 00:20 Oxygen Delivery Room Air 10/11/23 00:20 Temperature 36.6 C 10/11/23 00:20 Pulse Rate 86 10/11/23 00:20 Respiratory Rate 18 10/11/23 00:20 Blood Pressure 150/75 H 10/11/23 00:20 Pulse Oximetry 98 10/11/23 00:20 Oxygen Delivery Room Air 10/11/23 00:20 Critical Care Time Critical Care Time Critical Care Time: No Discharge Plan Discharge Clinical Impression: Toothache, Dental abscess Patient Disposition: Home, Self-Care Condition: Stable Instructions: Antibiotic Form, Dental Abscess (ED) Additional Instructions: Advised to keep follow-up with dentist take medicine as prescribed. Prescriptions: New tramadol 50 mg tablet 50 mg PO Q6H PRN (Reason: pain) Qty: 20 0RF No Action glimepiride 2 mg tablet 2 mg PO BID rosuvastatin 5 mg tablet 5 mg PO DAILY Rybelsus 7 mg tablet 7 mg PO DAILY clindamyci
[2023-10-11] MEDS: KETOROLAC (*BKC) 60 MG/2 ML VIAL IM (00:34)
== END 2023-10-11 00:46 | disposition home or self-care (01) ==
PROVIDERS: Emergency Provider Emergency Medicine; PCP Internal Medicine
DX: K04.7 Periapical abscess without sinus (principal); E11.9 Type 2 diabetes mellitus without complications; F17.210 Nicotine dependence, cigarettes, uncomplicated; Z79.84 Long term (current) use of oral hypoglycemic drugs; Z79.85 Long-term (current) use of injectable non-insulin antidiabetic drugs
CPT/HCPCS: 96372; 99283; J1885

== ENCOUNTER 2025-03-20 09:35 | Outpatient (CLI) | payer OTHER, SELFPAY ==
[2025-03-20 11:08] LABS: Alanine Aminotransferase 20 U/L (6-35); Albumin Level 4.2 g/dL (3.5-5.1); Alkaline Phosphatase 64 U/L (38-126); Anion Gap 7 mmol/L (4-12); Aspartate Amino Transferase 24 U/L (14-36); Bilirubin,Total 0.8 mg/dL (0.2-1.3); Blood Urea Nitrogen 20 mg/dL (7-17); Calcium 9.4 mg/dL (8.4-10.2); Carbon Dioxide 29 mmol/L (22-30); Chloride 108 mmol/L (98-107); Cholesterol 184 mg/dL (0-200); Estimated Glomerular Filt Rate > 60; Glucose 126 mg/dL (65-110); HDL Direct 35 mg/dL; Osmolality Calculated 302 mOsm/kg (285-295); Potassium 4.8 mmol/L (3.4-5.0); Sodium 144 mmol/L (137-145); Total Protein 7.3 g/dL (6.3-8.2); Triglycerides 125 mg/dL (<150)
[2025-03-20 11:10] LABS: MALB Creatinine Ratio 7.6 mg/g (0-30)
[2025-03-20 11:24] LABS: Free T4 Free Thyroxine 1.09 ng/dL (0.78-2.19)
[2025-03-20 11:37] LABS: Thyroid Stimulating Hormone 1.220 uIU/mL (0.465-4.680)
[2025-03-20 11:57] LABS: Vitamin B12 489.0 pg/mL (239-931)
== END 2025-03-20 09:36 | disposition home or self-care (01) ==
LOC: CHSLAB 09:37
PROVIDERS: PCP Internal Medicine; Visit Provider Nurse Practitioner Family
DX: E55.9 Vitamin D deficiency, unspecified (principal); E11.69 Type 2 diabetes mellitus with other specified complication; E78.5 Hyperlipidemia, unspecified
CPT/HCPCS: 36415; 80053; 80061; 82043; 82306; 82607; 84439; 84443